=== PATIENT | male | born 1990 | race Caucasian/White ===

== ENCOUNTER 2017-10-22 17:34 | Emergency (ER) | END 2017-10-22 20:27 | disposition home or self-care (01) ==

== ENCOUNTER 2017-10-25 07:51 | Emergency (ER) | END 2017-10-25 11:17 | disposition home or self-care (01) ==

== ENCOUNTER 2017-10-28 12:15 | Emergency (ER) | END 2017-10-28 14:35 | disposition home or self-care (01) ==

== ENCOUNTER 2017-10-29 07:15 | Emergency (ER) | END 2017-10-29 08:12 | disposition home or self-care (01) ==

== ENCOUNTER 2018-07-10 14:22 | Emergency (ER) | payer MEDICAID ==
[~2018-07-10] VITALS: Ht 167.6 cm; Wt 95.1 kg
[~2018-07-10 14:22] MED LIST: IBUP800T48 PO; TYL500 PO
[2018-07-10 14:24] VITALS: Ht 167.6 cm; Wt 95.1 kg
[2018-07-10] MEDS ORDERED: DEXAMETHASONE 0.1% 5 ML OPH RIGHT EYE ONE (15:30)
[2018-07-10] MEDS ORDERED: predniSONE 20 MG TAB PO ONE (15:30)
[2018-07-10] MEDS ORDERED: TOBRAMYCIN 0.3% 5 ML OPH RIGHT EYE ONE (15:30)
--- NOTE | 2018-07-10 15:30 | ERD ---
ER Documentation Chief Complaint Chief Complaint Complains of eye rednes and pain since yesterday HPI 27-year-old male, previously healthy, presents to the emergency department, complaining of right eye erythema, itching and yellowish discharge. He denies blurred vision, no trauma, he does not wear contact lenses, no fever or chills. ROS All systems reviewed and are negative except as per history of present illness. Medications Home Meds Active Scripts Acetaminophen* (Tylenol*) 500 Mg Tab, 500 MG PO Q4H PRN for MILD PAIN LEVEL 1-3, #20 TAB Prov:GALEN ARMENDARIZ DO 10/25/17 Ibuprofen* (Motrin*) 800 Mg Tab, 800 MG PO Q6H PRN for PAIN AND OR ELEVATED TEMP, #30 TAB Prov:MARCOS BRAGA [employer] 10/22/17 Allergies Allergies: Coded Allergies: No Known Allergy (Unverified , 10/28/17) PMhx/Soc Medical and Surgical Hx: pt denies Medical Hx, pt denies Surgical Hx History of Surgery: No Anesthesia Reaction: No Hx Neurological Disorder: No Hx Respiratory Disorders: No Hx Cardiac Disorders: No Hx Psychiatric Problems: No Hx Miscellaneous Medical Probl: No Hx Alcohol Use: Yes (social) Hx Substance Use: No Hx Tobacco Use: No Smoking Status: Never smoker FmHx Family History: No diabetes, No coronary disease Physical Exam Vitals Vital Signs Date Temp Pulse Resp B/P (MAP) Pulse Ox O2 O2 Flow FiO2 Time Delivery Rate 07/10/18 98.6 56 20 118/71 96 14:24 (87) Physical Exam Const: No acute distress Head: Atraumatic Eyes: Right eye with injected conjunctiva, sclera hyperemic, yellowish ocular discharge. Anterior chamber clear. ENT: Normal External Ears, Nose and Mouth. Neck: Full range of motion. No meningismus. Resp: Clear to auscultation bilaterally Cardio: Regular rate and rhythm, no murmurs Abd: Soft, non tender, non distended. Normal bowel sounds Skin: No petechiae or rashes Back: No midline or flank tenderness Ext: No cyanosis, or edema Neur: Awake and alert Psych: Normal Mood and Affect Results 24 hrs Current Medications Medications Dose Sig/Luis Start Time Status Last (Trade) Ordered Route PRN Stop Time Admin Dose Reason Admin 1 drop ONCE ONCE 07/10/18 DC Dexamethasone RIGHT EYE 15:30 (Maxidex 07/10/18 0.1% Oph) 15:33 Tobramycin 2 drop ONCE ONCE 07/10/18 DC Sulfate RIGHT EYE 15:30 (Tobrex 0.3% 07/10/18 Oph Drop) 15:33 Prednisone 40 mg ONCE ONCE 07/10/18 DC 07/10/18 (Prednisone) PO 15:30 15:43 07/10/18 15:33 Procedures/MDM Differential diagnosis include but not limited to: infection bacterial/viral/fungal, iritis, scleritis, corneal abrasion, allergies, foreign body, glaucoma. Physical examination and clinical presentation consistent most likely with acute bacterial conjunctivitis. During the ED course the patient remained stable, no new complaints. Clinical impression discussed with patient who agrees with management. The patient is stable to be treated outpatient and will be discharged home; Some side effects of prescribed medications (headache, rash, nausea, vomiting, diarrhea, interactions with other medications) were reviewed. The patient was instructed to follow up with the primary care provider in the next 48h. If symptoms persist, worsen or new symptoms develop, then patient should return to the ED immediately. Disclaimer: Inadvertent spelling and grammatical errors are likely due to EHR/dictation software use and do not reflect on the overall quality of patient care. Also, please note that the electronic time recorded on this note does not necessarily reflect the actual time of the patient encounter. Departure Diagnosis: Primary Impression: Conjunctivitis, right eye Condition: Stable Additional Instructions: Muchas joseph por [facility] para edwards servicio. Esperamos que en edwards visita a la luis de emergencia edwards problema medico haya sido solucionado y que se sienta mucho mejor. Para estar seguros que edwards mejoria sigue en proceso, le pedimos el favor de hacer gus nina de seguimiento medico con edwards doctor primario en los proximos 2-4 garrett. Lleve con usted estos documentos y las medicinas recetadas. Si elba sintomas empeoran, NO SE ESPERE, por favor regrese a luis de emergencia INMEDIATAMENTE. En cristine que usted no tenga un mdico de atencin primaria: Llame al mdico o clnica comunitaria de referencia que aparece abajo sylvester las horas de consultorio para hacer gus nina para que le vean. CLINICAS: [facility] [phone] [facility] [phone] [facility] [phone] [place] [phone] [place] [phone] [facility]. [phone] LUNA SAINZ MD Jul 10, 2018 15:30
[2018-07-10 16:45] VITALS: BP 116/75; PULSE 61; RESP 20
== END 2018-07-10 16:48 | disposition home or self-care (01) ==
LOC: FTE 14:22
DX: H10.9 Unspecified conjunctivitis (principal)
CPT/HCPCS: J7512; Z7610; 99283

== ENCOUNTER 2019-01-19 07:51 | Emergency (ER) | payer MEDICAID ==
[~2019-01-19] VITALS: Ht 167.6 cm; Wt 92.5 kg
[2019-01-19 07:52] VITALS: BP 120/65; PULSE 54; RESP 18; Ht 167.6 cm; Wt 92.5 kg
[2019-01-19] MEDS ORDERED: KETOROLAC 60 MG INJ IM STA (08:06)
[2019-01-19] MEDS ORDERED: HYDR-4011 PO (08:07)
[2019-01-19] MEDS ORDERED: CYCL10TA7 PO (08:07)
[2019-01-19] MEDS ORDERED: MED4DP PO (08:07)
[2019-01-19] MEDS ORDERED: NAPR-985 PO (08:07)
[2019-01-19] MEDS ORDERED: DEXAMETHASONE 10 MG/ML 1 ML INJ IM ONE (08:30)
[2019-01-19] MEDS ORDERED: DIAZEPAM 5 MG TAB PO ONE (08:30)
--- NOTE | 2019-01-19 09:23 | ERD ---
ER Documentation Chief Complaint Chief Complaint Lower back pain for 2 days s/p lifted heavy furnitures; ambulatory HPI 28-year-old male presenting with lower back pain x2 days. This started after he was lifting heavy furniture 2 days ago. He states it hurts along his whole back and is primarily on the paraspinous muscles. Patient has not taken any medications for pain. Denies medical problems. NKDA. Surgical history denies. Social history denies ROS All systems reviewed and are negative except as per history of present illness. Medications Home Meds Active Scripts Methylprednisolone* (Medrol* DOSE PACK) 4 Mg/Dose-Pack Tab.ds.pk, 4 MG PO . DIRECTED, #1 PACKET Prov:JOHN JEFFERY PA-C 01/19/19 Cyclobenzaprine Hcl* (Cyclobenzaprine Hcl*) 10 Mg Tablet, 10 MG PO TID, #15 TAB Prov:JOHN JEFFERY PA-C 01/19/19 Naproxen* (Naprosyn*) 500 Mg Tablet, 500 MG PO BID PRN for PAIN AND/OR INFLAMMATION, #30 TAB Prov:JOHN JEFFERY PA-C 01/19/19 Hydrocodone/Acetaminophen (Parker 5-325 Tablet) 1 Each Tablet, 1 TAB PO Q6H PRN for PAIN, #7 TAB Prov:JOHN JEFFERY PA-C 01/19/19 Acetaminophen* (Tylenol*) 500 Mg Tab, 500 MG PO Q4H PRN for MILD PAIN LEVEL 1-3, #20 TAB Prov:GALEN ARMENDARIZ DO 10/25/17 Ibuprofen* (Motrin*) 800 Mg Tab, 800 MG PO Q6H PRN for PAIN AND OR ELEVATED TE MP, #30 TAB Prov:MARCOS BRAGA [employer] 10/22/17 Allergies Allergies: Coded Allergies: No Known Allergy (Unverified , 10/28/17) PMhx/Soc Medical and Surgical Hx: pt denies Medical Hx, pt denies Surgical Hx History of Surgery: No Anesthesia Reaction: No Hx Neurological Disorder: No Hx Respiratory Disorders: No Hx Cardiac Disorders: No Hx Psychiatric Problems: No Hx Miscellaneous Medical Probl: No Hx Alcohol Use: Yes (social) Hx Substance Use: No Hx Tobacco Use: No Smoking Status: Never smoker FmHx Family History: No diabetes, No coronary disease, No other Physical Exam Vitals Vital Signs Date Temp Pulse Resp B/P (MAP) Pulse Ox O2 O2 Flow FiO2 Time Delivery Rate 01/19/19 97.9 54 18 120/65 97 07:52 (83) Physical Exam GENERAL: The patient is well-appearing, well-nourished, in no acute distress NECK: C-spine is soft and supple. There is no meningismus. There is no cervical lymphadenopathy. CHEST: Clear to auscultation bilaterally. There are no rales, wheezes or rhonchi. HEART: Regular rate and rhythm. No murmurs, clicks, rubs or gallops. ABDOMEN:Soft, nontender and nondistended. Good bowel sounds. No rebound or guarding. No gross peritonitis. No gross organomegaly or masses. BACK: No midline or flank tenderness. Tender to palpation along paraspinous muscles with no bony step-offs felt along the midline spine. Results 24 hrs Current Medications Medications Dose Sig/Luis Start Time Status Last (Trade) Ordered Route PRN Stop Time Admin Dose Reason Admin Ketorolac 60 mg ONCE STAT 01/19/19 DC 01/19/19 Tromethamine IM 08:06 08:26 (Toradol) 01/19/19 08:07 10 mg ONCE ONCE 01/19/19 DC 01/19/19 Dexamethasone IM 08:30 08:26 (Decadron) 01/19/19 08:31 Diazepam 5 mg ONCE ONCE 01/19/19 DC 01/19/19 (Valium) PO 08:30 08:25 01/19/19 08:31 Procedures/MDM DIAGNOSTIC IMAGING REPORT Patient: BRITTNEE BOWER : 1990 Age: 28 Sex: M MR #: [id number] DOS: 01/19/19 0834 Ordering MD: KI JEFFERY PA-C Location: [facility] Room/Bed: PROCEDURE: XR Cervical Spine. CLINICAL INDICATION: pain TECHNIQUE: AP, lateral and odontoid views of the cervical spine were performed. The images were reviewed on a PACS workstation. COMPARISON: None. FINDINGS: The vertebral body alignment, height and osseous mineralization are normal. The intervertebral disc spaces are well maintained. There are no abnormal calcifications. The prevertebral soft tissues are normal. No radiopaque foreign bodies are identified. There is no acute fracture or subluxation. RPTAT: AA IMPRESSION: Normal cervical spine. DIAGNOSTIC IMAGING REPORT Patient: BRITTNEE BOWER : 1990 Age: 28 Sex: M MR #: [id number] DOS: 01/19/19 0834 Ordering MD: KI JEFFERY PA-C Location: [facility] Room/Bed: PROCEDURE: XR Lumbar Spine. CLINICAL INDICATION: back pain TECHNIQUE: AP, lateral and cone-down lateral view of the lumbar spine were obtained. COMPARISON: No prior studies are available for comparison. FINDINGS: There is normal vertebral mineralization and alignment. No fracture or subluxation is seen. The disc spaces are normal in appearance. The posterior elements are unremarkable. The soft tissues appear normal. RPTAT: AA IMPRESSION: Unremarkable lumbar spine. DIAGNOSTIC IMAGING REPORT Patient: BRITTNEE BOWER : 1990 Age: 28 Sex: M MR #: [id number] DOS: 01/19/19 0834 Ordering MD: KI JEFFERY PA-C Location: [facility] Room/Bed: PROCEDURE: XR thoracic Spine. CLINICAL INDICATION: Back pain TECHNIQUE: AP, lateral views of the thoracic spine were obtained. COMPARISON: No prior studies are available for comparison. FINDINGS: There is normal vertebral mineralization and alignment. No acute fracture or subluxation is seen. The disc spaces are normal in appearance. The posterior elements are unremarkable. The soft tissues appear normal. RPTAT: AA IMPRESSION: Unremarkable thoracic spine. ER course: Toradol, Decadron and Valium given in ED. MDM: 28-year-old male presenting with back pain. I have low suspicion for acute fracture dislocation. I have low suspicion for discitis, epidural abscess or cauda equina. Patient likely has muscular skeletal strain secondary to mechanism and exam. Patient is discharged with supportive medications and recommended to rest. Patient is told symptoms change or worsen to return immediately to ER. All questions answered at discharge Departure Diagnosis: Primary Impression: Back pain Condition: Stable Patient Instructions: Back Pain (Acute Or Chronic) Referrals: COMMUNITY CLINICS YOU HAVE RECEIVED A MEDICAL SCREENING EXAM AND THE RESULTS INDICATE THAT YOU DO NOT HAVE A CONDITION THAT REQUIRES URGENT TREATMENT IN THE EMERGENCY DEPARTMENT. FURTHER EVALUATION AND TREATMENT OF YOUR CONDITION CAN WAIT UNTIL YOU ARE SEEN IN YOUR DOCTORS OFFICE WITHIN THE NEXT 1-2 DAYS. IT IS YOUR RESPONSIBILITY TO MAKE AN APPOINTMENT FOR FOLOW-UP CARE. IF YOU HAVE A PRIMARY DOCTOR --you should call your primary doctor and schedule an appointment IF YOU DO NOT HAVE A PRIMARY DOCTOR YOU CAN CALL OUR PHYSICIAN REFERRAL HOTLINE AT IF YOU CAN NOT AFFORD TO SEE A PHYSICIAN YOU CAN CHOSE FROM THE FOLLOWING [facility] [address] [facility] [address] [facility] [address] [facility] [phone] [facility] [address] [facility]. [facility]. [address] Additional Instructions: FOLLOW UP WITH YOUR PRIMARY CARE PHYSICIAN TOMORROW.Return to this facility if you are not improving as expected. JOHN JEFFERY PA-C Jan 19, 2019 09:23
== END 2019-01-19 09:18 | disposition home or self-care (01) ==
LOC: FTE 07:51
DX: M54.5 Low back pain (principal)
CPT/HCPCS: 72040; 72072; 72100; 96372; J1100; J1885; Z7502; Z7610